=== PATIENT | male | born 1955 | race Caucasian/White ===

== ENCOUNTER 2017-05-13 05:55 | Emergency (ER) | payer MEDICARE, MEDICAID ==
[2017-05-13 09:50] LABS: BACTERIA,URINE 0 /HPF (0-FEW); BILIRUBIN,URINE NEGATIVE (NEG); GLUCOSE,URINE NEGATIVE (NEG); NITRITE,URINE NEGATIVE (NEG); PROTEIN,URINE NEGATIVE (NEG-TRACE); RBC,URINE 0 /HPF (0-2); SQUAMOUS EPITHELIAL CELL,UR FEW /LPF; WBC,URINE 0 /HPF (0-4)
[2017-05-13 09:52] LABS: WHITE BLOOD COUNT 6.8 x10^3/uL (4.0-11.0)
[2017-05-13 09:53] LABS: BASO % 1 % (0-3); EOS % 2 % (0-3); HEMATOCRIT 39.8 % (39.0-53.0); LYMPH % 29 % (24-48); MEAN CORPUSCULAR HEMOGLOBIN 32 pg (25-35); MEAN CORPUSCULAR HGB CONC 15 g/dL (31-37); MEAN CORPUSCULAR VOLUME 96 fL (79-100); MONO % 10 % (0-9); NEUT % 58 % (31-73); PLATELET COUNT 136 x10^3/uL (140-400); RED BLOOD COUNT 4.13 x10^6/uL (4.30-5.70)
[2017-05-13 09:56] LABS: ALBUMIN 2.5 g/dL (3.4-5.0); CALCIUM 8.3 mg/dL (8.5-10.1); CREATININE 1.4 mg/dL (0.7-1.3); DIRECT BILIRUBIN 0.1 mg/dL (0.0-0.2); GFR 51.2; POTASSIUM 4.1 mmol/L (3.5-5.1); TOTAL BILIRUBIN 0.3 mg/dL (0.2-1.0); TOTAL PROTEIN 7.3 g/dL (6.4-8.2)
--- NOTE | 2017-05-13 11:46 | RAD ---
Exam performed: CT abdomen pelvis without: IV contrast. History: Chronic abdominal pain with recent worsening. Date of service: 05/13/17. Comparison: None available Technique: Contiguous helical acquisitions are obtained through the abdomen and pelvis without oral IV contrast. Sagittal and coronal reformatted images are obtained and reviewed. Findings: The lung bases demonstrate bibasal atelectasis, greater on the right. The visualized heart is normal. Lack of IV contrast limits evaluation of abdominal viscera, however there is suggestion of 1.7 cm low attenuating lesion in the subdiaphragmatic right hepatic lobe. Cholecystectomy. Spleen and pancreas are normal. Both adrenal glands and bilateral kidneys appear grossly normal. No nephrolithiasis or hydronephrosis seen. IVC filter. The small bowel loops are nondilated and unremarkable. Extensive scattered stool throughout the colon. Appendix is partially visualized and is unremarkable. No inflammatory changes in the right lower quadrant The urinary bladder is partially decompressed. Prostate gland, seminal vesicles and the rectum appear normal. No free or focal fluid collections or pelvic lymphadenopathy seen. Right hip arthroplasty. Spondylotic changes with grade 1 anterolisthesis of L4 over L5. Mild loss of height of L1 vertebral body, possibly chronic. Impression: 1. Extensive scattered stool throughout the colon. Correlate clinically for constipation. 2. Bibasal atelectasis, greater on the right. 3. Spondylotic changes and multilevel disc degenerative changes. Mild loss of height of L1 vertebral body probably represents mild compression fracture, age indeterminate. Correlate with area of focal pain and if indicated evaluation with bone scan may be of additional benefit since MRI may not be possible due to neurostimulator. 4. Low attenuating 1.7 cm lesion in the subdiaphragmatic right hepatic lobe possibly a cyst or hemangioma. Correlation with any previous study if available may be helpful, however if not multiphasic contrast-enhanced CT may be obtained for further evaluation PQRS Compliance Statement: One or more of the following individualized dose reduction techniques were utilized for this examination: 1. Automated exposure control 2. Adjustment of the mA and/or kV according to patient size 3. Use of iterative reconstruction technique
[2017-05-13] MEDS ORDERED: fentaNYL PF VIAL 100 MCG/2 ML VIAL ONE (12:00)
[2017-05-13] MEDS ORDERED: FAMOTIDINE 20 MG/2 ML VIAL ONE (12:00)
[2017-05-13] MEDS ORDERED: ONDANSETRON PF 4 MG/2 ML VIAL. ONE (12:00)
== END 2017-05-13 11:45 | disposition home or self-care (01) ==
LOC: ER 05:55
DX: R10.84 Generalized abdominal pain (principal); I10 Essential (primary) hypertension; Z86.73 Personal history of transient ischemic attack (TIA), and cerebral infarction without residual deficits; Z90.49 Acquired absence of other specified parts of digestive tract; Z88.2 Allergy status to sulfonamides; Z88.8 Allergy status to other drugs, medicaments and biological substances
CPT/HCPCS: 36415; 74176; 80048; 80076; 81001; 83605; 83690; 85025; 96374; 96375; 99285; J2405; J3010; S0028

== ENCOUNTER → 2018-05-27 | Outpatient (CLI) | payer MEDICARE, MEDICAID ==
--- NOTE | 2018-05-27 16:25 | KCIC ---
DAMARIS, 05/27/2018: HISTORY: Diarrhea and abdominal pain There is a large amount of gas throughout the GI tract. There is gas and stool in the rectum. There is no evidence of focal obstruction. The findings suggest an ileus. There is no evidence of organomegaly. An inferior vena cava filter is in place at the L2 level. A right hip prosthesis is in place. There are mixed cystic and sclerotic changes in the left femoral head raising the possibility of avascular necrosis. Moderate multilevel degenerative changes are present in the spine. There appears to be a laminectomy defect in the lower lumbar spine. Spinal stimulator leads extend into the lower thoracic spinal canal. IMPRESSION: 1. Increased gas in large and small bowel in a pattern suggesting a generalized ileus or atonic colon. 2. Other chronic findings as described above. Electronically signed by: Ivan Canales MD (05/27/2018 4:22 PM) [facility]
== END | disposition home or self-care (01) ==
LOC: KCIC 15:33
PROVIDERS: ATTEND Nurse Practitioner
DX: R19.7 Diarrhea, unspecified (principal); I10 Essential (primary) hypertension; Z86.73 Personal history of transient ischemic attack (TIA), and cerebral infarction without residual deficits; Z90.49 Acquired absence of other specified parts of digestive tract; Z88.2 Allergy status to sulfonamides; Z88.8 Allergy status to other drugs, medicaments and biological substances
CPT/HCPCS: 74018